=== PATIENT | female | born 1980 ===

== ENCOUNTER → 2018-07-22 22:46 | Outpatient (REF) | payer OTHER, SELFPAY ==
[2018-07-23 00:17] LABS: Erythrocyte Sedimentation Rate 11 MM/HR (0-20)
[2018-07-23 00:31] LABS: Add Manual Diff / Slide Review NO; Basophils Absolute Auto 0 /uL (0-100); Basophils Percent Auto 0.2 % (0-2); Eosinophils Absolute Auto 0 /uL (0-450); Hematocrit 39.2 % (36-46); Hemoglobin 13.7 g/dL (12.0-16.0); Lymphocytes Absolute Auto 700 /uL (1100-4500); Lymphocytes Percent Auto 5.3 % (25-40); Mean Corpuscular HGB Conc 34.9 % (30-36); Mean Corpuscular Hemoglobin 31.1 PG (26-34); Mean Corpuscular Volume 89.1 fL (80-100); Monocytes Absolute Auto 500 /uL (0-900); Monocytes Percent Auto 3.6 % (3-14); Neutrophils Absolute Auto 11900 /uL (1500-7000); Neutrophils Percent Auto 90.9 % (50-75); Platelet Count 250 X10^3/uL (150-400); Red Blood Cell Count 4.39 X10^6/uL (4.0-5.2); Red Cell Distribution Width 12.8 % (11.6-14.8); White Blood Cell Count 13.1 X10^3/uL (4.5-11.0)
[2018-07-23 02:13] LABS: Thyroid Stimulating Hormone 0.31 uIU/mL (0.47-4.68)
== END ==
LOC: LAB 22:46
PROVIDERS: Visit Provider Naturopath
DX: N61.0 Mastitis without abscess (principal); E03.9 Hypothyroidism, unspecified
CPT/HCPCS: 36415; 84443; 85025; 85651